=== PATIENT | female | born 1975 | race Caucasian/White ===

== ENCOUNTER → 2024-07-28 10:01 | Outpatient (REF) | payer BC, SELFPAY | LOC: HWRAD 10:01 | PROVIDERS: ATTENDING PHYSICIAN Obstetrics & Gynecology; FAMILY PHYSICIAN Nurse Practitioner Family | DX: N91.1 Secondary amenorrhea (principal); N95.0 Postmenopausal bleeding | CPT/HCPCS: 76830; 76856 ==